=== PATIENT | male | born 1980 | race Asian ===

== ENCOUNTER 2019-12-08 11:50 | Outpatient (CLI) | payer BC | END 2019-12-08 11:51 | disposition home or self-care (01) | LOC: COV 11:50 | PROVIDERS: ATTEND Family Medicine | DX: R53.83 Other fatigue (principal); J02.9 Acute pharyngitis, unspecified; R09.81 Nasal congestion; Z20.828 Contact with and (suspected) exposure to other viral communicable diseases ==

== ENCOUNTER 2022-10-15 19:17 | Outpatient (CLI) | payer SELFPAY | END 2022-10-15 19:18 | disposition other institution (70) | LOC: EMS 19:17 | DX: S61.512A Laceration without foreign body of left wrist, initial encounter (principal); S61.511A Laceration without foreign body of right wrist, initial encounter; W49.09XA Other specified item causing external constriction, initial encounter; Y93.89 Activity, other specified; Y92.410 Unspecified street and highway as the place of occurrence of the external cause | CPT/HCPCS: A0425; A0429 ==

== ENCOUNTER 2022-10-15 19:38 | Emergency (ER) | payer BC, OTHER ==
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
[2022-10-15 21:27] VITALS: BP 155/110
== END 2022-10-15 21:42 | disposition home or self-care (01) ==
LOC: EDBD → EDUNIT# → ED 19:38
DX: F15.90 Other stimulant use, unspecified, uncomplicated (principal); F10.10 Alcohol abuse, uncomplicated; S60.512A Abrasion of left hand, initial encounter; Y35.813A Legal intervention involving manhandling, suspect injured, initial encounter
CPT/HCPCS: 99283